=== PATIENT | female | born 1925 | race Caucasian/White ===

== ENCOUNTER → 2016-06-19 | Outpatient (CLI) | payer OTHER ==
[~2016-06-19] MED LIST: ACET-1311; ACT35; ADVICOR; CEPH500C PO; CLOP1TAB15; CLTP; DXY100 PO; ERGO1CAP35; EZET10TA63; GADAVIST IV PRN; GLUCOSAMINE/CHONDROI; METO25TA3; MULT-506; NORT25CA; REVIEWED; SYN100 PO; VSC/5 PO
--- NOTE | 2016-06-19 20:02 | DIAGNOSTIC IMAGING REPORT ---
BRAIN COMBO FOR IAC CLINICAL HISTORY: Asymmetrical sensorineural neural hearing loss, right greater than left. Colon cancer. COMPARISON STUDY: Head CT August 25, 2010. TECHNIQUE: Utilizing a 1.5 Mattie magnet, multiplanar, multi echo imaging of the brain was performed pre and postcontrast administration with thin cut imaging through the internal auditory canals. Injection of 6.5 cc of Gadavist IV was uneventful. FINDINGS: There are no areas of restricted diffusion. No acute intracranial hemorrhage, midline shift or mass effect is present. Moderate atrophy is noted. White matter T2 hypertense foci suggest moderate small vessel disease. There is a 5 mm enhancing lesion within the medial aspect of the right cerebellar hemisphere. There is mild associated signal abnormality on the coronal FLAIR sequence. No additional intracranial masses or areas of pathologic enhancement are identified on this examination. There is no mass or abnormal enhancement within the internal auditory canals. A vessel, likely the right anterior inferior cerebellar artery extends into the right internal artery canal and may deform the nerves. Calvarial signal is maintained. An apparent scalp defect of the left frontal scalp is chronic and of doubtful significance. IMPRESSION: 1. 5 mm enhancing lesion with mild associated edema within the medial right cerebellar hemisphere which was not evident on contrast-enhanced CT of August 25, 2010. This lesion is indeterminate. Differential considerations include metastatic disease and small primary brain lesion. Correlation with oncologic history is recommended. A short-term follow-up MRI of the brain in 3 months could be obtained. 2. No mass or abnormal enhancement within the internal auditory canals. The right anterior inferior cerebellar artery extends into the right internal artery canal and deforms the nerves. This finding is of questionable clinical significance and can be seen in asymptomatic patients. Electronically signed by: Jayden Umana M.D. 06/19/2016 8:01 PM Dictated Date/Time: 06/19/2016 7:21 PM
== END | disposition home or self-care (01) ==
LOC: C.MRI 17:32
DX: H90.42 Sensorineural hearing loss, unilateral, left ear, with unrestricted hearing on the contralateral side (principal)

== ENCOUNTER → 2016-06-19 | Outpatient (CLI) | payer OTHER ==
[~2016-06-19] MED LIST changes: -GADAVIST IV PRN
[2016-06-19 13:06] LABS: BLOOD UREA NITROGEN 18 mg/dl (7-18); CREATININE 0.93 mg/dl (0.60-1.20)
== END | disposition home or self-care (01) ==
LOC: C.LAB 10:46
DX: H90.42 Sensorineural hearing loss, unilateral, left ear, with unrestricted hearing on the contralateral side (principal)

== ENCOUNTER → 2016-07-10 | Outpatient (CLI) | payer OTHER ==
[~2016-07-10] MED LIST changes: +OPTIRAY 320 IV PRN
--- NOTE | 2016-07-10 15:40 | DIAGNOSTIC IMAGING REPORT ---
CHEST CT WITH CONTRAST CT DOSE: 564.94 mGy.cm HISTORY: Colon carcinoma CT TECHNIQUE: Multiaxial CT images of the chest were performed following the intravenous administration of contrast. COMPARISON: None. FINDINGS: Lungs are considered clear. No evidence for infiltrative change. 5 mm nodular density peripheral aspect right middle lobe transaxial image 39. There are no focal infiltrates. Mediastinal and hilar regions are negative for significant rosio change. Several small benign nodes are present. Moderate atherosclerotic change thoracic aorta. No evidence for aneurysm or dissection. 1.5 cm hypodensity peripheral aspect right hepatic lobe possibly a cyst. IMPRESSION: 1. 5 mm low suspicion nodular density peripheral aspect right middle lobe. 2. Follow-up per Fleischner criteria. 3. Otherwise negative CT of the chest. Please refer to below summary of Fleischner criteria recommendations for follow-up of incidental CT nodules (Nyla Jimenez, Guidelines for management of small pulmonary nodules detected on CT scans: A statement from the Fleischner Society, Radiology 237: [phone].) SOLID NODULES Solitary nodule size: <6 mm * low risk patients: no follow-up needed * high risk patients: optional CT at 12 months Solitary nodule size: 6-8 mm * low risk patients: follow-up at 6-12 months, then consider further follow-up at 18-24 months * high risk patients: initial follow-up CT at 6-12 months and then at 18-24 months if no change Solitary nodule size: >8 mm * either low or high risk patients - consider follow-up CT at 3 months, and/or CT-PET, and/or biopsy Multiple nodules size: <6 mm * low risk patients: no routine follow-up * high risk patients: optional CT at 12 months Multiple nodules size: 6-8 mm * low risk patients: follow-up at 3-6 months, then consider further follow-up at 18-24 months * high risk patients: follow-up at 3-6 months, then at 18-24 months if no change Multiple nodules size: >8 mm * low risk patients: follow-up at 3-6 months, then consider further follow-up at 18-24 months * high risk patients: follow-up at 3-6 months, then at 18-24 months if no change Note: newly detected indeterminate nodule in persons 35 years of age or older. * Low risk patients: minimal or absent history of smoking and/or other known risk factors * high risk patients: history of smoking or of other known risk factors (e.g. first degree relative with lung cancer, or exposure to asbestos, radon, uranium) * if a nodule up to 8 mm is partly solid or is ground glass further follow-up is required after 24 months to exclude possible slow growing adenocarcinoma (ERIN) SUBSOIL NODULES Solitary pure ground-glass nodule * nodule size <6 mm - no CT follow-up required * nodule size >=6 mm - follow-up CT at 6-12 months, then every 2 years until 5 years Solitary part-solid nodule * nodule size <6 mm - no CT follow-up required * nodule size >=6 mm - follow-up CT at 3-6 months. If unchanged, and solid component remains <6 mm, then annual follow-up for 5 years Multiple subsolid nodules * nodule size <6 mm - follow-up CT at 3-6 months, consider further follow-up at 2 and 4 years if stable * nodule size >=6 mm - follow-up CT at 3-6 months, subsequent management based on the most suspicious nodule(s) Electronically signed by: Devon Garcia M.D. 07/10/2016 3:39 PM Dictated Date/Time: 07/10/2016 3:31 PM
--- NOTE | 2016-07-10 16:01 | DIAGNOSTIC IMAGING REPORT ---
ABDOMEN AND PELVIS CT WITH IV AND ORAL CONTRAST CT DOSE: HISTORY: Neoplasm CT TECHNIQUE: Multiaxial CT images of the abdomen and pelvis were performed following the use of intravenous and oral contrast. COMPARISON STUDY: 11/25/2014 FINDINGS: Lung bases are clear. Several hypodensities within the liver suggesting small cysts. These are unchanged from the prior study. Bilateral renal cysts also unchanged. No evidence renal hydronephrosis. Atherosclerotic change abdominal aorta as well as iliac vasculature. Bowel pattern is nonobstructive. Bladder is midline. IMPRESSION: No acute process within the abdomen or pelvis. Chronic changes as noted. Electronically signed by: Devon Garcia M.D. 07/10/2016 4:00 PM Dictated Date/Time: 07/10/2016 3:57 PM
== END | disposition home or self-care (01) ==
LOC: C.CTS 14:09
PROVIDERS: ATTEND Internal Medicine Hematology & Oncology
DX: G93.9 Disorder of brain, unspecified (principal)

== ENCOUNTER → 2016-09-10 | Outpatient (CLI) | payer OTHER ==
[~2016-09-10] MED LIST changes: -OPTIRAY 320 IV PRN
--- NOTE | 2016-09-10 14:30 | MAMMOGRAPHY REPORT ---
BILATERAL DIGITAL SCREENING MAMMOGRAM WITH CAD: 09/10/2016 CLINICAL HISTORY: Routine screening. Patient has no complaints. TECHNIQUE: Current study was also evaluated with a Computer Aided Detection (CAD) system. Bilateral CC and MLO views were obtained. COMPARISON: Comparison is made to exams dated: 09/08/2015 mammogram, 02/01/2012 mammogram, 11/15/2010 mammogram, 07/25/2009 ultrasound, 07/19/2009 mammogram - [facility], and 05/14/2008. BREAST COMPOSITION: There are scattered areas of fibroglandular density in both breasts. FINDINGS: No suspicious masses, calcifications, or areas of architectural distortion are noted in ei ther breast. There has been no significant interval change compared to prior exams. Scattered bilater al benign-appearing calcifications are not significantly changed. IMPRESSION: ACR BI-RADS CATEGORY 2: BENIGN There is no mammographic evidence of malignancy. A 1 year screening mammogram is recommended. The pa tient will receive written notification of the results. Approximately 10% of breast cancers are not detected with mammography. A negative mammographic report should not delay biopsy if a clinically suggestive mass is present. Maria Elena Chowdhury M.D. /:09/10/2016 13:56:52 [employer] Architect: Laina ADDISON(Duane)(Denny), [facility] letter sent: Normal 1/2 BI-RADS Code: ACR BI-RADS Category 2: Benign
== END | disposition home or self-care (01) ==
LOC: C.MAMM 13:13
PROVIDERS: ATTEND Family Medicine
DX: Z12.31 Encounter for screening mammogram for malignant neoplasm of breast (principal)